=== PATIENT | male | born 1960 | race Asian ===

== ENCOUNTER 2016-12-19 08:01 | Outpatient (CLI) | payer OTHER | END 2016-12-19 08:02 | disposition home or self-care (01) | LOC: DI 08:01 | PROVIDERS: ATTEND Family Medicine | DX: R06.00 Dyspnea, unspecified (principal) | CPT/HCPCS: 93306 ==

== ENCOUNTER 2020-07-28 15:18 | Outpatient (CLI) | payer OTHER ==
--- NOTE | 2020-07-28 17:43 | CT Report ---
PROCEDURE: Low Dose Lung Cancer Screen INDICATIONS: HISTORY OF SMOKING TECHNIQUE: Noncontrast low-dose 5 mm thick sections acquired from the pulmonary apices to the posterior costophr enic angles. 7 mm thick coronal and sagittal MIP reformats were then acquired. For radiation dose r eduction, the following was used: automated exposure control, adjustment of mA and/or kV according t o patient size. COMPARISON: CXR 07/03/2016.. FINDINGS: Image quality: Excellent. Lungs and pleura: Right upper lobe medial subpleural pulmonary nodule measuring 4 mm, (4/78). Calcif ied granuloma. Mild pleural apical scarring of the upper lobes. Mild emphysematous change. Minimal br onchial wall thickening. No pleural effusion. No pneumothorax. Mediastinum: Heart size is normal. No coronary artery calcifications within a fibroid. No pericardia l effusion. No mediastinal adenopathy by size criteria. Thoracic aorta and central pulmonary arteri es are normal in size. Esophagus is normal in caliber. Small hiatal hernia. Bones and chest wall: Mild gynecomastia. No suspicious bony lesions. No vertebral body compression fractures. No axillary or supraclavicular adenopathy by size criteria. The thyroid is normal in siz e. Abdomen: Visualized upper abdomen solid organs and bowel loops appear normal in the absence of contr ast. Mild calcified plaque in the abdominal aorta. IMPRESSION: Right upper lobe pulmonary nodule measuring 4 mm. Lung RADS 2. Benign appearance. -Recommend follow-up screening chest CT in 12 months. Reviewed by: Dickson Gonzales MD on 07/28/2020 4:42 PM [facility] Approved by: Dickson Gonzales MD on 07/28/2020 4:42 PM [place] Station ID: [id number]
== END 2020-07-28 15:19 | disposition home or self-care (01) ==
LOC: DI 15:18
PROVIDERS: ATTEND Family Medicine
DX: Z12.2 Encounter for screening for malignant neoplasm of respiratory organs (principal); Z87.891 Personal history of nicotine dependence; R91.1 Solitary pulmonary nodule
CPT/HCPCS: 71271; G0297

== ENCOUNTER 2021-11-03 16:28 | Outpatient (CLI) | payer OTHER ==
--- NOTE | 2021-11-03 17:07 | CT Report ---
PROCEDURE: Low Dose Lung Cancer Screen INDICATIONS: NICOTINE ADDICTION IN REMISSION TECHNIQUE: Noncontrast low-dose images were acquired from the pulmonary apices to the posterior costophrenic ang les. Multiplanar MIP reformats were then acquired. For radiation dose reduction, the following was used: automated exposure control, adjustment of mA and/or kV according to patient size. COMPARISON: 07/28/2020, 03/18/2018 FINDINGS: Image quality: Excellent. Lungs and pleura: A 4 mm subpleural nodule is again seen involving the right upper lobe medially, as seen on series 4 image 64. This is unchanged compared to the prior examinations, including 11/16/2018 . No new pulmonary nodule is detected. No focal infiltrates are seen. The central airways are patent. No pleural effusions or pneumothorax can be seen. Mediastinum: Heart size is normal. No pericardial effusion. No mediastinal adenopathy by size crit eria. Thoracic aorta and central pulmonary arteries are normal in size. Esophagus is normal in jonatan rogelio. No hiatal hernia. Bones and chest wall: No suspicious bony lesions. Age-appropriate degenerative changes are seen. Th ere is accentuated thoracic kyphosis. No vertebral body compression fractures. No axillary or supr aclavicular adenopathy by size criteria. The thyroid is normal in size and there are no incidental f indings. Abdomen: Visualized upper abdomen solid organs and bowel loops appear normal in the absence of contr ast. IMPRESSION: 4 mm subpleural nodule again seen within the right upper lobe, which is stable compared to prior exam inations and considered to be benign. Lung RADS category 2, benign. Recommend annual low-dose CT chest screening examinations, as long as the patient meets the published screening criteria. Reviewed by: Dima Lowry MD on 11/03/2021 4:06 PM [facility] Approved by: Dima Lowry MD on 11/03/2021 4:06 PM [facility] Station ID: [id number]
== END 2021-11-03 16:29 | disposition home or self-care (01) ==
LOC: DI 16:28
PROVIDERS: ATTEND Family Medicine
DX: Z12.2 Encounter for screening for malignant neoplasm of respiratory organs (principal); F17.201 Nicotine dependence, unspecified, in remission; R91.1 Solitary pulmonary nodule